=== PATIENT | female | born 1970 | race Caucasian/White ===

== ENCOUNTER → 2016-12-04 14:05 | Outpatient (CLI) | payer BC ==
[~2016-12-04 14:05] MED LIST: BUPROPION XL300 MG PO; MULTIPLE VITAMI1 TA1 PO; PERCOCET 5-3251 TAB PO; VYVANSE60 MG PO
== END | disposition home or self-care (01) ==
LOC: D.US 14:00
DX: N92.1 Excessive and frequent menstruation with irregular cycle (principal)